=== PATIENT | male | born 1960 | race Two or more races ===

== ENCOUNTER 2021-02-17 20:30 | Emergency (ER) | payer MEDICAID ==
[~2021-02-17] VITALS: Ht 172.7 cm; Wt 89.0 kg
[2021-02-17] MEDS ORDERED: KETOROLAC 30MG/ML VIAL IM ONE (22:30)
[2021-02-17] MEDS ORDERED: NAPR-1176 MT (22:34)
[2021-02-17 22:53] VITALS: BP 127/83
== END 2021-02-17 23:27 | disposition home or self-care (01) ==
LOC: ER 20:30
DX: S16.1XXD Strain of muscle, fascia and tendon at neck level, subsequent encounter (principal); S39.012A Strain of muscle, fascia and tendon of lower back, initial encounter; X58.XXXD Exposure to other specified factors, subsequent encounter
CPT/HCPCS: 96372; 99283; J1885

== ENCOUNTER 2021-05-12 01:27 | Emergency (ER) | payer MEDICAID ==
[~2021-05-12] VITALS: Ht 172.7 cm; Wt 84.0 kg
[~2021-05-12 01:27] MED LIST: NAPR-1176 MT
[2021-05-12 01:55] VITALS: BP 117/76
== END 2021-05-12 03:43 | disposition left against medical advice (07) ==
LOC: ER 01:27
DX: T16.2XXA Foreign body in left ear, initial encounter (principal); F32.9 Major depressive disorder, single episode, unspecified; X58.XXXA Exposure to other specified factors, initial encounter; Y93.89 Activity, other specified; Y92.018 Other place in single-family (private) house as the place of occurrence of the external cause
CPT/HCPCS: 99281